=== PATIENT | female | born 1995 | race Caucasian/White ===

== ENCOUNTER 2018-01-07 07:29 | Day surgery (SDC) | payer OTHER, SELFPAY ==
[2018-01-07] VITALS (11 sets, daily range): BP systolic 113–151; BP diastolic 51–99; PULSE 81–105; RESP 14–19; TEMP 36.3–37.8; O2SAT 93–100; BMI 29.0; BMI 29.9
--- NOTE | 2018-01-07 07:30 | GALL_PTH ---
PATIENT: FÉLIX LOJA LOC: [facility] [place] U#:[id number] AGE/SX: 22/F ROOM: RE01/07/[address]: Dr. Ross Branch MD : [id number] BED: DIS: 01/08/2018 SPEC #: [id number] RECD: 01/07/18 13:22 STATUS: RENALDO AMISH #: [id number] TAYLOR: 01/07/18 07:[address]: Ross Branch DEPT: SURGICAL PATHOLOGY RECD BY: Rubio Salgado ENTERED: 01/07/18 13:36 SP TYPE: FRANCISCA CAMARA DR: Deb Otto, INCREMENT MANAGER-C Tissues: Gallbladder, NOS Procedures: Surgery Specimen Level III HEADER OPERATION: Laparoscopic cholecystectomy PRE-OP DIAGNOSIS: Acute cholecystitis and cholelithiasis TISSUE SUBMITTED: Gallbladder MICROSCOPIC DIAGNOSIS Gallbladder: Acute and chronic hemorrhagic and ulcerated cholecystitis and cholelithiasis. SJ:nathan 01/08/18 MICROSCOPIC DESCRIPTION Slides are reviewed. GROSS DESCRIPTION Received is one container labeled with the patient's name and designated gallbladder. The specimen consists of a gallbladder measuring 10 cm in length and up to 4 cm in diameter. A focal area of defect is noted at the fundus of the gallbladder. The external surface is pink-perez, smooth and glistening for the most part. Focally it is granular, hemorrhagic and contains cautery artifact. No bile is noted in the gallbladder. Present in the container are two round mulberry, greenish-yellow stones measuring in aggregate 4.5 x 2 x 2 cm and each stone measuring 2 cm in greatest dimension. The mucosa is ulcerated. No mass lesion is identified. The gallbladder wall measures up to 1 cm in thickness. Sales Representative [facility] sections from the gallbladder and the cystic duct are submitted in two cassettes. / BRANDON:nathan 01/07/18 TC:2 CPT: 01223
[2018-01-07] MEDS: 0.9% Normal Saline 1,000 ML 1000 ML IV (07:50)
--- NOTE | 2018-01-07 07:53 | US_ITS ---
STUDY: ABDOMINAL ULTRASOUND - RIGHT UPPER QUADRANT REASON FOR VISIT: Female, 22 years old. Right upper quadrant pain TECHNIQUE: Ultrasound evaluation of the right upper quadrant was performed with real-time and static holder-scale imaging. TECHNICAL QUALITY: Adequate. COMPARISON: None. FINDINGS: Liver: The liver measures 15.7 cm. There is normal echogenicity of the liver. The bile ducts are within normal limits. There is hepatic color flow. The direction of portal flow is hepatopetal. There is no demonstrated mass lesion. Gallbladder: Normal distended gallbladder. The gallbladder wall measures 3.5 mm. There is a positive sonographic Gaona's sign. There is no pericholecystic fluid. There is a solitary echogenic gallstone within the gallbladder. Common Bile Duct (C.B.D.): The common bile duct measures 6 mm. Pancreas: Normal size of the head, body and tail of the pancreas. There is normal echogenicity of the pancreas. There is no demonstrated pancreatic mass or cyst. Right Kidney: Normal size of the right kidney. The right kidney measures 10.8 x 5.2 x 5.7 cm. Normal renal cortex. The right cortex measures 1.9 cm. There is no demonstrated renal mass or cyst. There is no right hydronephrosis. US/Gallbladder IMPRESSION: Cholelithiasis and probable acute cholecystitis. Electronically Signed: William Peck MD at 9:49 EDT Tel , Service support ,
--- NOTE | 2018-01-07 07:57 | ED.VISSUMM ---
- ER Visit Summary Date of Service: 01/07/18 Chief Complaint: Abdominal pain History of Present Illness: The patient is a 22 F with upper abdominal pain for 3 days. Patient has had issues with this on and off for about 5 years. This episode seemed to be more severe. It started Saturday and was worse after eating food. She has tried multiple vfdp-eyq-vkqbxzx remedies, but nothing seems to help. It is associated with nausea and vomiting. Denies fever or skin changes. Denies any history of abdominal surgeries. Denies any medical problems. She takes control and uses alcohol occasionally. Non-smoker. Physical Examination: Afebrile. Heart rate 105 and blood pressure 147/93. Patient appears uncomfortable and is slightly tearful. Skin appears normal without pallor or jaundice. Heart regular. Lungs clear. Abdomen is tender in the upper hemiabdomen. No guarding or rebound. Negative Gaona sign. Test Results: We will check labs, urinalysis, and right upper quadrant ultrasound. Emergency Department Course and Treatment: Symptoms are concerning for gastric issues, reflux, hepatobiliary disease. Patient was treated with fluids, Zofran, and a GI cocktail while awaiting results. White count 11.9. CMP and lipase normal. Urinalysis and test negative. Ultrasound showed cholelithiasis and probable cholecystitis. GI cocktail did not help. Patient had increasing pain and required morphine. I am not convinced this is cholecystitis, but rather biliary colic. Given her severe symptoms, I discussed with Dr. Branch. He will evaluate the patient. Treatment Plan: As above Disposition: Pending further evaluation Impression: 1. Biliary colic This note was generated with [employer] dictation software. It may contain incorrect words, spelling, and punctuation that were not noted in review of the chart prior to signing ED Disposition - Plan for ED Patient: Chief Complaint: Abd Pain Referrals: NOT,DEFINED [NON-STAFF] -
--- NOTE | 2018-01-07 08:00 | ED.DCSUM_ITS ---
- ER Visit Summary Date of Service: 01/07/18 Chief Complaint: Abdominal pain History of Present Illness: The patient is a 22 F with upper abdominal pain for 3 days. Patient has had issues with this on and off for about 5 years. This episode seemed to be more severe. It started Saturday and was worse after eating food. She has tried multiple wryz-hls-tlgzuxq remedies, but nothing seems to help. It is associated with nausea and vomiting. Denies fever or skin changes. Denies any history of abdominal surgeries. Denies any medical problems. She takes control and uses alcohol occasionally. Non-smoker. Physical Examination: Afebrile. Heart rate 105 and blood pressure 147/93. Patient appears uncomfortable and is slightly tearful. Skin appears normal without pallor or jaundice. Heart regular. Lungs clear. Abdomen is tender in the upper hemiabdomen. No guarding or rebound. Negative Gaona sign. Test Results: We will check labs, urinalysis, and right upper quadrant ultrasound. Emergency Department Course and Treatment: Symptoms are concerning for gastric issues, reflux, hepatobiliary disease. Patient was treated with fluids, Zofran , and a GI cocktail while awaiting results. White count 11.9. CMP and lipase normal. Urinalysis and test negative. Ultrasound showed cholelithiasis and probable cholecystitis. GI cocktail did not help. Patient had increasing pain and required morphine. I am not convinced this is cholecystitis, but rather biliary colic. Given her severe symptoms, I discussed with Dr. Branch. He will evaluate the patient. Treatment Plan: As above Disposition: Pending further evaluation Impression: 1. Biliary colic This note was generated with [employer] dictation software. It may contain incorrect words, spelling, and punctuation that were not noted in review of the chart prior to signing ED Disposition - Plan for ED Patient: Chief Complaint: Abd Pain Referrals: NOT,DEFINED [NON-STAFF] -
[2018-01-07 08:03] LABS: Bacteria 0 SEEN /hpf (None Seen); Mucous, Urine 0 SEEN /hpf (<or=2+); White Blood Cells 0 SEEN /hpf (0-5)
[2018-01-07] MEDS: Ondansetron 4 MG/2 ML Vial IV (08:03)
[2018-01-07 08:06] LABS: Absolute Neutrophil Count 9.3 X10^3/uL (2.0-7.7); Basophil# 0.02 X10^3/uL; Basophil% 0.2 % (0-1); Color, Urine Yellow (Yellow); Eosinophil# 0.12 X10^3/uL; Glucose, Dipstick Normal (Normal); Hematocrit 45.1 % (37-47); Ketone-Dipstick Negative (Negative); Leukocyte Esterase-Dipstick Negative /ul (Negative); Mean Corp Hgb Conc 33.3 g/gl (32-36); Mean Corpuscular Hgb 28.7 pg (27.0-32.0); Mean Corpuscular Volume 86.2 fL (81-99); Mean Platelet Vol. 10.7 fl (6.2-12.0); Monocyte# 0.54 X10^3/uL; Monocyte% 4.5 % (0-10); Neutrophil # 9.29 X10^3/uL (2.7-7.7); Neutrophil % 78.1 % (47-70); Nitrite-Dipstick Negative (Negative); Occult Blood-Urine 10 /ul (Negative); POSITIVE COUNT NO; POSITIVE DIFFERENTIAL NO; POSITIVE MORPHOLOGY NO; Platelet Count 277 K/mm3 (150-450); Protein-Dipstick Negative (Negative); RBC Distribution Width CV 12.8 % (11.6-14.6); RBC Distribution Width SD 40.1 fl (35.1-43.9); Red Blood Count 5.23 M/mm3 (4.2-5.4); Urine Bilirubin Dipstick Negative (Negative); Urine Clarity Sl. Cloudy (Clear); Urine Urobilinogen Normal (Normal); Urine pH 6.5 (5.0 - 8.0); White Blood Count 11.9 K/mm3 (4.4-11.0)
[2018-01-07 08:13] LABS: Red Blood Cells-Urine 0-5 SEEN /hpf (0-5); Squamous Epithelial Cells - UA 0-5 SEEN /hpf (5-10)
[2018-01-07 08:24] LABS: ALB/GLOB Ratio 0.9 RATIO (0.9-2.4); AST(SGOT) 16 U/L (15-37); Alanine Aminotransfer ALT/SGPT 23 U/L (13-56); Albumin, Serum 3.9 g/dL (3.2-5.0); Alkaline Phosphatase 107 U/L (45-117); Anion Gap 6 (5-15); BUN 9 mg/dL (7-18); BUN/Creat Ratio 10.1 RATIO (10-20); Calcium,Total 9.6 mg/dL (8.5-10.1); Chloride 105 mmol/L (98-107); Creatinine, Serum 0.89 mg/dL (0.55-1.02); EST Glomerular Filtration Rate 83 mL/min (>60); Est Glom Filt Rate - Afr Amer 100 mL/min (>60); Estimated Creatinine Clearance 92.03 ml/min; Globulin 4.4 g/dL (2.2-4.2); Glucose 91 mg/dL (74-106); Lipase 108 U/L (73-393); Potassium 3.8 mmol/L (3.5-5.1); Pregnancy, Serum, hCG Quali. NEGATIVE Negative (0-9 Nonpreg); Protein, Total 8.3 g/dL (6.4-8.2); Sodium Level 138 mmol/L (136-145)
[2018-01-07] MEDS: Morphine 4 MG/ML Syringe IV (10:00)
--- NOTE | 2018-01-07 11:02 | HP.PCM_ITS ---
Problem List (1) Cholelithiasis and acute cholecystitis without obstruction Status: Acute History of Present Illness Date of Admission: 01/07/18 The patient is a 22 F with upper abdominal pain for 3 days. Patient has had issues with this on and off for about 5 years. This episode seemed to be more severe. It started Saturday and was worse after eating food. She has tried multiple naub-hle-wapivhu remedies, but nothing seems to help. It is associated with nausea and vomiting. Denies fever or skin changes. Denies any history of abdominal surgeries. Denies any medical problems. She takes control and uses alcohol occasionally. Non-smoker. While in the emergency department she has gotten a GI cocktail which did not affect her pain whatsoever. A gallbladder ultrasound was performed which showed a thickened gallbladder wall positive Gaona sign but no pericholecystic fluid was identified. Past Medical History Allergies No Known Allergies Allergy (Verified 01/07/18 07:31) Home Medications: Ambulatory Orders Medication Instructions Recorded Bcp 1 tab PO DAILY 01/07/18 Surgical History: - - Patient has had tubes as a child Smoking Status: Never smoker Alcohol: Rare Drugs: None - *Family History Maternal History Items: No pertinent history Review of Systems Constitutional: Reports: Anorexia. Denies: Chills, Fever Eyes: Denies: Blurred vision, Pain, Redness, Vision Change HEENT: Denies: Dysphasia, Ear Pain, Eye Pain, Head Aches, Hearing Changes, Sore Throat Cardiovascular: Denies: Chest Pain, Chest Pressure, Chest Tightness, Palpitations Respiratory: Denies: Cough, Hemoptysis, Shortness of breath at rest, Shortness of breath upon exertion, Wheezing Gastrointestinal: Reports: Abdominal Pain, Constipation, Nausea, Vomiting Genitourinary: Denies: Dysuria, Frequency, Hematuria, Urgency Musculoskeletal: Denies: Joint Pain Skin: Denies: Lesions, Rash, Wounds Neurological: Denies: Change in Speech, Confusion, Numbness, Tingling, Seizures Psychiatric: Denies: Anxiety, Depression Endocrine: Denies: Heat/ Cold Intolerance, Polydipsia, Polyuria Hematologic/ Lymphatic: Denies: Adenopathy, Easy Bruising VTE Information - Inpt Only VTE Present on Admission: No VTE Mechan Device Prophylaxis: SCD's VTE Pharm Prophylaxis ordered?: No Reason prophylaxis not ordered:: Treatment Not Indicated Patient Problems: Active and Suspected Problems Cholelithiasis and acute cholecystitis without obstruction (Acute) - Physical Exam General: Alert, Oriented x3 HEENT: Atraumatic, PERRLA, EOMI, Normocephalic Oral: Moist Mucosa Neck: Supple, No JVD Lungs: Clear to auscultation Cardiovascular: Regular rate, Regular Rhythm, No murmurs Abdomen: Non-Distended, No Hepato-splenomegaly - No rebound guarding or peritoneal signs are identified, Hypoactive Bowel Sounds, Tender Extremities: No clubbing, No cyanosis, No edema Lymphatic: No Cervical, Supraclavicular, or Inguinal Adenopathy Vital Signs Temp Pulse Resp BP Pulse Ox 97.8 F 87 16 145/97 H 98 01/07/18 07:30 01/07/18 09:50 01/07/18 09:50 01/07/18 09:50 01/07/18 09:50 Oxygen Delivery Method Room Air Weight: 180 lb Body Mass Index (BMI) 29.0 Laboratory Tests Past 24 Hrs 01/07/18 01/07/18 01/07/18 07:49 07:49 07:49 WBC 11.9 H RBC 5.23 Hgb 15.0 Hct 45.1 MCV 86.2 MCH 28.7 MCHC 33.3 RDW 12.8 RDW Differential 40.1 Plt Count 277 MPV 10.7 Immature Gran % (Auto) 0.200 Neut % (Auto) 78.1 H Lymph % (Auto) 16.0 L [place] % (Auto) 4.5 Eos % (Auto) 1.0 Baso % (Auto) 0.2 Absolute Neuts (auto) 9.3 H Absolute Lymphs (auto) 1.90 Total Counted Not Reportable Sodium 138 Potassium 3.8 Chloride 105 Carbon Dioxide 27.0 Anion Gap 6 BUN 9 Creatinine 0.89 Estim Creat Clear Calc 92.03 Est GFR (MDRD) Af Amer 100 Est GFR (MDRD) Non-Af 83 BUN/Creatinine Ratio 10.1 Glucose 91 Calcium 9.6 Total Bilirubin 0.30 AST 16 ALT 23 Alkaline Phosphatase 107 Total Protein 8.3 H Albumin 3.9 Globulin 4.4 H Albumin/Globulin Ratio 0.9 Lipase 108 Serum , Qual NEGATIVE Urine Color Urine Clarity Urine pH Ur Specific [place] Urine Protein Urine Glucose (UA) Urine Ketones Urine Occult Blood Urine Nitrite Urine Bilirubin Urine Urobilinogen Ur Leukocyte Esterase Urine RBC Urine WBC Ur Squamous Epith Cells Urine Bacteria Urine Mucus 01/07/18 07:49 WBC RBC Hgb Hct MCV MCH MCHC RDW RDW Differential Plt Count MPV Immature Gran % (Auto) Neut % (Auto) Lymph % (Auto) [place] % (Auto) Eos % (Auto) Baso % (Auto) Absolute Neuts (auto) Absolute Lymphs (auto) Total Counted Sodium Potassium Chloride Carbon Dioxide Anion Gap BUN Creatinine Estim Creat Clear Calc Est GFR (MDRD) Af Amer Est GFR (MDRD) Non-Af BUN/Creatinine Ratio Glucose Calcium Total Bilirubin AST ALT Alkaline Phosphatase Total Protein Albumin Globulin Albumin/Globulin Ratio Lipase Serum , Qual Urine Color Yellow Urine Clarity Sl. Cloudy Urine pH 6.5 Ur Specific [place] 1.010 Urine Protein Negative Urine Glucose (UA) Normal Urine Ketones Negative Urine Occult Blood 10 H Urine Nitrite Negative Urine Bilirubin Negative Urine Urobilinogen Normal Ur Leukocyte Esterase Negative Urine RBC 0-5 SEEN Urine WBC 0 SEEN Ur Squamous Epith Cells 0-5 SEEN Urine Bacteria 0 SEEN Urine Mucus 0 SEEN Assessment/Plan All Active Problems Cholelithiasis and acute cholecystitis without obstruction (Acute) My plan is perform a laparoscopic cholecystectomy. All risk benefits have been reviewed with the patient to include bleeding infection injury to underlying structures which could possibly mean further surgeries down the road. All questions asked of been answered and she agrees to proceed.
--- NOTE | 2018-01-07 11:26 | EKG12_ITS ---
Test Reason : PRE OP Blood Pressure : / mmHG Vent. Rate : 081 BPM Atrial Rate : 081 BPM P-R Int : 124 ms QRS Dur : 092 ms QT Int : 356 ms P-R-T Axes : 031 055 028 degrees QTc Int : 413 ms Normal sinus rhythm Normal ECG No previous ECGs available Confirmed by JACQUELINE BAUER ([id number]), story editor NAKIA SEN ([id number]) on 01/09/2018 12:34:10 PM Referred By: JENNIFER Confirmed By:JACQUELINE BAUER
--- NOTE | 2018-01-07 11:56 | PCM.OPRPT ---
Problem List (1) Cholelithiasis and acute cholecystitis without obstruction Status: Acute Report of Operation Date of Procedure: 01/07/18 Pre-Operative Diagnosis: Acute cholecystitis with cholelithiasis without obstruction Post-Operative Diagnosis: Same Surgery/Procedure Performed:: Laparoscopic cholecystectomy Type of Anesthesia:: General Anesthesiologist: Jean Paul Wan Specimen's removed: Gallbladder Estimated Blood Loss (mL): 100cc Description of Procedure: Patient was brought in the operating room and placed in the supine position. Under excellent general endotracheal intubation the abdomen was sterilely prepped and draped in the usual fashion. Local was injected infraumbilically. Dissection was carried down to the fascia. The fascia was grasped with a Jenny. Varies needle was placed inside the abdomen and the abdomen was insufflated 15 torr. A 10/12 trocar was placed without difficulty. Subxiphoid 5 trochars placed inferior to this another #5 trocar was placed and laterally a #5 trocar was placed. All of these under direct visualization without injury to underlying structures. Patient was noted to have a tense gallbladder acutely inflamed I aspirated out fluid that was purulent nature from the gallbladder. I grab the fundus of the gallbladder and retracted in a cephalad direction took down moderate amount of adhesions from the fundus as I dissected down and identified the cystic duct I had an extremely hard time dissecting out the cystic artery there was significant scarring in this area I do not believe this was her first episode of cholecystitis he was very apparent that doing any further dissection in this area could have comet undue [place] injury to either the hepatic duct or the right hepatic artery and therefore I aborted the dissection here. I then did a dome down approach taking the gallbladder down to this area this was done with electrocautery and I did not lose too much blood although the area was very oozy and all in all I probably lost close to 5200 cc of blood. Once I had an area dissected free and I felt comfortable putting a Endoloop around this I tied the Endoloop down to the juncture of the gallbladder and cystic duct it tied down quite nicely I transected the gallbladder and placed it in a specimen bag as well as the 2 large stones that were identified. I remove these through the umbilical port through a specimen bag without difficulty. I re-irrigated the right upper quadrant good hemostasis was noted I did not see any bleeding on the remnant of the gallbladder. I did not see any bile leaks. I placed a 15 round Prakash-Ruiz drain into the wound out through the lateral sidewall and sutured to the skin with a 3-0 nylon. I irrigated this area out with approximately 2-1/2 L of irrigation but I did leave some of the irrigation behind. I remove the trochars under direct visualization good hemostasis was noted close the fascia the umbilical port with a figure 8 stitch of 0 Vicryl skin incisions were closed with a particular stitches of 4-0 Monocryl Steri-Strips are applied sterile dressings were applied and the patient tolerated the procedure well. This is an extremely difficult case I think it was appropriate leaving part of the gallbladder remnant in place. - Admit VTE Documentation VTE Present on Admission: No VTE Mechan Device Prophylaxis: SCD's VTE Pharm Prophylaxis ordered?: No Reason prophylaxis not ordered:: Treatment Not Indicated
[2018-01-07] MEDS: Bupivacaine Mpf 0.5% 30 ML VIAL (13:16)
--- NOTE | 2018-01-07 17:05 | NURSING ---
taking popsicle without n/v, denies need for pain medication at this time
[2018-01-07] MEDS: Lactated Ringers 1,000 ML 60 ML IV (17:20)
[2018-01-07] MEDS: HYDROmorphone 1 MG/ML Syringe IV ×2 (17:20→20:13)
[2018-01-07] MEDS: HYDROcodone Bitartrate/Apap 5/325 Tablet PO (22:37)
[2018-01-08] MEDS: HYDROmorphone 1 MG/ML Syringe IV (00:48)
[2018-01-08] MEDS: Lactated Ringers 1,000 ML 60 ML IV (00:48)
[2018-01-08] MEDS: 0.9% NaCl Peripheral Flush Adult/Peds IV ×2 (00:48→04:43)
[2018-01-08 04:00] VITALS: BP 115/65; PULSE 91; RESP 18; TEMP 37.3; O2SAT 96
[2018-01-08] MEDS: HYDROcodone Bitartrate/Apap 5/325 Tablet PO ×2 (04:42→11:07)
[2018-01-08 07:44] LABS: Absolute Lymphocyte Count 2.33 X10^3/ul (0.83-4.51); Absolute Neutrophil Count 3.4 X10^3/uL (2.0-7.7); Basophil# 0.02 X10^3/uL; Basophil% 0.3 % (0-1); Eosinophils% 1.5 % (0-5); Hematocrit 41.2 % (37-47); Hemoglobin 12.7 g/dl (12.0-15.0); Lymphocyte # 2.33 X10^3/ul (4.0); Lymphocyte % 35.8 % (19-41); Mean Corp Hgb Conc 30.8 g/gl (32-36); Mean Corpuscular Hgb 27.9 pg (27.0-32.0); Mean Corpuscular Volume 90.4 fL (81-99); Mean Platelet Vol. 10.7 fl (6.2-12.0); Monocyte# 0.68 X10^3/uL; Monocyte% 10.5 % (0-10); Neutrophil # 3.37 X10^3/uL (2.7-7.7); Neutrophil % 51.9 % (47-70); Platelet Count 205 K/mm3 (150-450); RBC Distribution Width CV 13.2 % (11.6-14.6); RBC Distribution Width SD 43.2 fl (35.1-43.9); Red Blood Count 4.56 M/mm3 (4.2-5.4); White Blood Count 6.5 K/mm3 (4.4-11.0)
[2018-01-08 07:49] LABS: POSITIVE COUNT NO; POSITIVE DIFFERENTIAL NO; POSITIVE MORPHOLOGY NO
[2018-01-08 08:17] LABS: ALB/GLOB Ratio 0.8 RATIO (0.9-2.4); AST(SGOT) 80 U/L (15-37); Alanine Aminotransfer ALT/SGPT 93 U/L (13-56); Albumin, Serum 2.9 g/dL (3.2-5.0); Alkaline Phosphatase 110 U/L (45-117); Anion Gap 6 (5-15); BUN 4 mg/dL (7-18); BUN/Creat Ratio 4.4 RATIO (10-20); Calcium,Total 8.4 mg/dL (8.5-10.1); Chloride 108 mmol/L (98-107); EST Glomerular Filtration Rate 81 mL/min (>60); Est Glom Filt Rate - Afr Amer 98 mL/min (>60); Estimated Creatinine Clearance 91.01 ml/min; Globulin 3.5 g/dL (2.2-4.2); Glucose 84 mg/dL (74-106); Potassium 3.8 mmol/L (3.5-5.1); Protein, Total 6.4 g/dL (6.4-8.2); Sodium Level 140 mmol/L (136-145)
[2018-01-08 08:33] VITALS: BP 135/80; PULSE 94; RESP 18; TEMP 37.1; O2SAT 95
--- NOTE | 2018-01-08 09:26 | DCINST_ITS ---
Discharge Diet: Light diet - advance as tolerated Discharge Activity: May Not Drive - for 2-3 days or while taking narcotic pain medicataions., - - Do not drive, work heavy equipment or sign legal documents for 24 hours. May shower in (days): 1 - with the bandage in place. Additional Activity Instructions:: Pain medication may cause nausea. You should typically eat light foods as you take your pain medications. Pain medication may also cause constipation. If this is a problem for you, please discuss with your doctor. Call your doctor if your incision/area has: Continuous Slow Oozing, Sudden Increased Bleeding, Increased Pain/ Swelling, Increased Redness, Foul Smelling Discharge, Fever of 101 or Higher Call your doctor if you observe: Fever of 101 or Higher Suture Line Care: Avoid Pulling/Pushing, Avoid Pinching/Bending Cleanse incision/area with: Soap & Water Additional Dressing/Incision Instructions:: Leave operative bandaids on for 2 days. When you remove dressing, leave Steri-Strips on until your follow-up appointment, or until the Steri-Strips fall off on their own. Allergies/Adverse Reactions: Allergies No Known Allergies Allergy (Verified 01/07/18 07:31) Medications to take at Discharge Norgestimate-Ethinyl Estradiol [Previfem] 1 tablet PO DAILY 01/07/18 Hydrocodone Bitart/Apap 5-325 [Surprise 5/325] 1 - 2 tab PO Q6H PRN PRN 5 Days #30 tab 01/08/18 The following prescriptions were given: Hydrocodone Bitart/Apap 5-325 [[place] 5/325] 1 - 2 tab PO Q6H PRN PRN 5 Days #30 tab PRN Reason: Mild-Moderate (pain scale 1-5) Primary Care Physician: NOT,DEFINED [NON-STAFF] - Test Results: Test results from this visit will be discussed in further detail at your follow- up appointment, if applicable. Please Follow Up With: Sofia Espinal PA-C - [phone] When: 10 days Proposed Discharge Date: 01/08/18
--- NOTE | 2018-01-08 10:55 | PCM.PN.SRG ---
<Ross Branch - Last Filed: 01/08/18 11:26> Patient Problems: Active and Suspected Problems Cholelithiasis and acute cholecystitis without obstruction (Acute) - Physical Exam Vital Signs Temp Pulse Resp BP Pulse Ox 98.8 F 94 18 135/80 H 95 01/08/18 08:33 01/08/18 08:33 01/08/18 08:33 01/08/18 08:33 01/08/18 08:33 Oxygen Delivery Method Room Air Weight: 185 lb 3.013 oz Body Mass Index (BMI) 29.9 Intake and Output for Last 24 Hours 01/06/18 01/07/18 01/08/18 23:59 23:59 23:59 Intake Total 2400 / 2400 2533 / 2533 Output Total 210 / 210 3050 / 3050 Balance 2190 / 2190 -517 / -517 Laboratory Tests Past 24 Hrs 01/08/18 01/08/18 07:32 07:32 WBC 6.5 RBC 4.56 Hgb 12.7 Hct 41.2 MCV 90.4 MCH 27.9 MCHC 30.8 L RDW 13.2 RDW Differential 43.2 Plt Count 205 MPV 10.7 Immature Gran % (Auto) 0.000 Neut % (Auto) 51.9 Lymph % (Auto) 35.8 [place] % (Auto) 10.5 H Eos % (Auto) 1.5 Baso % (Auto) 0.3 Absolute Neuts (auto) 3.4 Absolute Lymphs (auto) 2.33 Total Counted Not Reportable Sodium 140 Potassium 3.8 Chloride 108 H Carbon Dioxide 26.0 Anion Gap 6 BUN 4 L Creatinine 0.90 Estim Creat Clear Calc 91.01 Est GFR (MDRD) Af Amer 98 Est GFR (MDRD) Non-Af 81 BUN/Creatinine Ratio 4.4 L Glucose 84 Calcium 8.4 L Total Bilirubin 0.50 AST 80 H ALT 93 H Alkaline Phosphatase 110 Total Protein 6.4 Albumin 2.9 L Globulin 3.5 Albumin/Globulin Ratio 0.8 L Assessment/Plan All Active Problems Cholelithiasis and acute cholecystitis without obstruction (Acute) Patient is progressing. Drain was removed today. Incisions are healing well. We will see how she is doing in the afternoon to make a determination whether she will be discharged. <Sofia Espinal - Last Filed: 01/08/18 12:22> Subjective: Patient evaluated resting comfortably in bed. She notes minimal amount of abdominal discomfort. She denies nausea, vomiting, fever. She is urinating well. - Physical Exam General: Alert, Oriented x3, Cooperative Abdomen: Bowel Sounds Present, Soft, Tender - generalized, - - Incisions c/d/i. No erythema or infection noted. STEPHEN drain was removed. Vital Signs Temp Pulse Resp BP Pulse Ox 98.8 F 94 18 135/80 H 95 01/08/18 08:33 01/08/18 08:33 01/08/18 08:33 01/08/18 08:33 01/08/18 08:33 Oxygen Delivery Method Room Air Weight: 185 lb 3.013 oz Body Mass Index (BMI) 29.9 Intake and Output for Last 24 Hours 01/06/18 01/07/18 01/08/18 23:59 23:59 23:59 Intake Total 2400 / 2400 1822 / 1822 Output Total 210 / 210 2350 / 2350 Balance 2190 / 2190 -528 / -528 Laboratory Tests Past 24 Hrs 01/08/18 01/08/18 07:32 07:32 WBC 6.5 RBC 4.56 Hgb 12.7 Hct 41.2 MCV 90.4 MCH 27.9 MCHC 30.8 L RDW 13.2 RDW Differential 43.2 Plt Count 205 MPV 10.7 Immature Gran % (Auto) 0.000 Neut % (Auto) 51.9 Lymph % (Auto) 35.8 [place] % (Auto) 10.5 H Eos % (Auto) 1.5 Baso % (Auto) 0.3 Absolute Neuts (auto) 3.4 Absolute Lymphs (auto) 2.33 Total Counted Not Reportable Sodium 140 Potassium 3.8 Chloride 108 H Carbon Dioxide 26.0 Anion Gap 6 BUN 4 L Creatinine 0.90 Estim Creat Clear Calc 91.01 Est GFR (MDRD) Af Amer 98 Est GFR (MDRD) Non-Af 81 BUN/Creatinine Ratio 4.4 L Glucose 84 Calcium 8.4 L Total Bilirubin 0.50 AST 80 H ALT 93 H Alkaline Phosphatase 110 Total Protein 6.4 Albumin 2.9 L Globulin 3.5 Albumin/Globulin Ratio 0.8 L Medical Necessity - Tobacco Use Smoking Status: Never smoker Assessment/Plan Ready for discharge Code Visit Inpatient E&M: 96311 Subs Hosp L1 - Post-op charge
== END 2018-01-08 13:30 | disposition home or self-care (01) ==
LOC: ED 08:12 → SDC 10:59 → AC 11:07 → MS3 01-08 12:39
PROVIDERS: Physician Assistant; Emergency Provider Emergency Medicine; Family Provider Nurse Practitioner Primary Care; PCP Nurse Practitioner Primary Care; Visit Provider Surgery
PROC: (CPT 47562; principal; 2018-01-07 07:10)
DX: K80.12 Calculus of gallbladder with acute and chronic cholecystitis without obstruction (principal)
CPT/HCPCS: 47562; 36415; 76705; 80053; 81001; 83690; 84703; 85025; 88304; 93005; 99282; J7030; J7120; A4216; J2405

== ENCOUNTER 2023-03-11 19:00 | Inpatient (IN) | payer OTHER, SELFPAY ==
[2023-03-11] VITALS (41 sets, daily range): BP systolic 82–215; BP diastolic 45–115; PULSE 56–81; TEMP 36.4–37.2; O2SAT 97–100; BMI 34.7
[2023-03-11] MEDS: Lactated Ringers 1,000 ML 50 ML IV (20:20)
[2023-03-11] MEDS: 0.9% Normal Saline Single 100 ML IV.SOLN. INTRA-UTER (20:30)
--- NOTE | 2023-03-11 20:31 | HP.PCM.OB_ITS ---
HPI - General General Date of Admission: 03/11/23 Date of Service: 03/11/23 Chief Complaint: elevated BP HPI Narrative FÉLIX LOJA, is a 28 F who presents 1 para 0 who presents at 38-5/7 weeks gestation with elevated blood pressure in the office today. Blood pressures been normal throughout . She denies any headache or visual changes. She actually presented to the office today with decreased movement. She denied any vaginal bleeding or leaking of fluid. She denies any epigastric pain. is uncomplicated to date. [facility] Medical History (Updated 03/11/23 @ 20:[address] Sunni Ferrell MD) Cholelithiasis and acute cholecystitis without obstruction Gestational HTN Home Medications norgestimate 0.25 mg-ethinyl estradiol 35 mcg tablet 1 tab PO DAILY [facility]ulbal[facility] surgery 01/07/18 [History Last Taken 01/07/18 08:00] w/calcium 8-iron 29 mg-folic 400 mcg-levomefolate 1 mg tablet 1 tab PO DAILY 03/11/23 [History Last Taken 03/10/23 12:00 1 TAB] Allergy/AdvReac Type Severity Reaction Status Date / Time nystatin Allergy Hives Uncoded 03/11/23 19:35 Surgical History (Updated 03/11/23 @ 20:19 by Clotilde Scott) History of placement of ear tubes History of surgery History of tonsillectomy and adenoidectomy Hx of cholecystectomy Social History (System 04/18/21 @ 10:13 by Sylvia Purvis) Smoking Status: Never smoker second hand exposure: No alcohol intake: current alcohol intake frequency: a few times a month substance use type: does not use caffeine: Yes ROS Constitutional Constitutional: Denies fatigue, fever(s) or malaise Eyes Eyes: Denies change in vision ENT HEENT: Denies dizziness or headache(s) Cardiovascular Cardiovascular: Denies chest pain, dyspnea or lightheadedness Respiratory/Chest Respiratory/Chest: Denies cough or dyspnea Gastrointestinal Gastrointestinal: Denies change in bowel habits Genitourinary Genitourinary: Denies burning urination or genital lesions Integumentary Integumentary: Denies rash Neurologic Neurologic: Denies confusion, dizziness, headache(s), numbness or weakness Vital Signs Vital Signs Vital Signs: 03/11/23 20:12 03/11/23 20:12 03/11/23 20:13 Temperature Temperature Source Pulse Rate 75 74 Blood Pressure 143/85 H BP Systolic 143 BP Diastolic 85 Pulse Ox 03/11/23 20:13 03/11/23 20:12 03/11/23 20:12 Temperature Temperature Source Temporal Pulse Rate 79 Blood Pressure BP Systolic BP Diastolic Pulse Ox 97 03/11/23 20:12 03/11/23 20:12 Temperature 98.9 F Temperature Source Pulse Rate Blood Pressure BP Systolic BP Diastolic Pulse Ox 97 Weight Weight: 97.579 kg Body Mass Index (BMI) 34.7 Physical Exam Const alert and no apparent distress General Appearance: cooperative HEENT normocephalic Resp normal respiratory effort Cardio regular rate GI soft to palpation GI Narrative: gravid, nontender, appropriate for gestational age Extremity no calf tenderness General Extremity: edema Skin no wounds Rashes: No rashes noted Psych activity/motor behavior normal Labs Labs Labs: Blood Type Pending Antibody Screen Pending Hct 41.0 % (37-47) Hgb 13.3 g/dL (12.0-15.0) Syphilis Total Ab Pending Assessment & Plan (1) 38 weeks gestation of : PLAN: Normal parous patient with uncomplicated to date presents today for gestational hypertension. No clinical evidence of preeclampsia at this time. Labs are pending. heart tones tracing is category 1. Risk benefits and alternatives to induction of labor were discussed with the patient and her partner and the questions were answered and they desire to proceed. Estimated weight is less than 4500 g clinically and pelvis clinically adequate to expect vaginal delivery. May have routine pain control measures as needed. Will give 1 dose of oral Cytotec. Then will initiate Pitocin as needed. Skinner catheter placed through the cervix in the usual sterile fashion and inflated to 30 cc. Placement over internal os confirmed. Incidental artificial rupture membranes with return of moderate amount of clear fluid at time of Skinner placement.
[2023-03-11 20:33] LABS: Absolute Neutrophil Count 12.1 X10^3/uL (2.0-7.7); Basophil# 0.05 X10^3/uL; Basophil% 0.3 % (0-1); Eosinophil# 0.09 X10^3/uL; Eosinophils% 0.6 % (0-5); Hemoglobin 13.3 g/dL (12.0-15.0); Lymphocyte % 12.8 % (19-41); Mean Corp Hgb Conc 32.4 g/dL (32-36); Mean Corpuscular Hgb 28.5 pg (27.0-32.0); Mean Platelet Vol. 12.5 fl (6.2-12.0); Monocyte# 0.67 X10^3/uL; Monocyte% 4.5 % (0-10); NRBC Flagged by Analyzer 0 % (0-5); Neutrophil # 12.12 X10^3/uL (2.7-7.7); Neutrophil % 81.4 % (47-70); Platelet Count 189 K/mm3 (150-450); RBC Distribution Width CV 13.6 % (11.6-14.6); RBC Distribution Width SD 43.2 fl (35.1-43.9); Red Blood Count 4.66 M/mm3 (4.2-5.4); White Blood Count 14.9 K/mm3 (4.4-11.0)
[2023-03-11] MEDS: Ondansetron 4 MG/2 ML Vial IV (20:53)
[2023-03-11] MEDS: LACTATED RINGERS 500 ML 999 ML IV ×2 (21:11→21:58)
[2023-03-11 21:20] LABS: Syphilis Antibodies Non-reactive
[2023-03-11 21:30] LABS: AST(SGOT) 9 U/L (15-37); Alanine Aminotransfer ALT/SGPT 15 U/L (13-56); Creatinine, Serum 0.65 mg/dL (0.55-1.02); EST Glomerular Filtration Rate 114 mL/min (>60); Est Glom Filt Rate - Afr Amer 138 mL/min (>60); Estimated Creatinine Clearance 119.55 ml/min; Uric Acid 4.3 mg/dL (2.6-6.0)
[2023-03-11 21:31] LABS: Protein, Urine (Random) 6.5 mg/dL (<11.9); Protein:Creat Ratio 133 mg/g CRE (0-200)
[2023-03-11] MEDS: proCHLORPERazine 10 MG/2 ML Vial IV (21:41)
[2023-03-11] MEDS: fentaNYL-bupivacaine (epidural) 100 ML BAG EPIDURAL (22:00)
[2023-03-12] VITALS (96 sets, daily range): BP systolic 111–142; BP diastolic 54–94; PULSE 60–92; RESP 16–18; TEMP 36.2–37.3; O2SAT 89–100
[2023-03-12] MEDS: LACTATED RINGERS 500 ML 999 ML IV (00:14)
[2023-03-12] MEDS: Lactated Ringers 1,000 ML 200 ML IV (00:32)
[2023-03-12] MEDS: Ondansetron 4 MG/2 ML Vial IV (03:01)
[2023-03-12] MEDS: Acetaminophen 500 MG Tablet PO (03:46)
[2023-03-12] MEDS: Oxytocin 10 UNITS/ML Vial IM (07:43)
[2023-03-12] MEDS: Oxytocin 15 Units/NS 250ml 15 UNITS/250 ML IV.SOLN 83 UNITS IV (07:45)
--- NOTE | 2023-03-12 08:06 | EX.PCM.OBRPT ---
Assessment & Plan (1) 38 weeks gestation of : (2) (spontaneous vaginal delivery): Maternal Data Information Final BRITTANY: 03/20/23 Gestational age: 38 6/7 Vaginal Delivery Maternal Presentation Maternal Presentation: Medically Indicated Induction Type of Induction: Skinner Bulb and Amniotomy Medical Reason for Induction: Gestational Hypertension Operative Information Date of Procedure: 03/12/23 Pre-Operative Diagnosis: labor Post-Operative Diagnosis: same Surgery / Procedure Performed: Spontaneous Vaginal Delivery Type of Anesthesia: Epidural Special Medications: none Drain: Skinner to straight drain Estimated Blood Loss: 300 Time of Delivery: 07:41 Findings Description of Procedure: A vigorous female was delivered LAW over a small first-degree vaginal laceration. The remainder the was delivered with maternal pushing and gentle traction only in less than 15 seconds. The Pitocin infusion was initiated for active management of the third stage. The cord was clamped and cut after cord pulsations ceased. The was attended to by the waiting nursing staff. The placenta was delivered spontaneously and intact. The cervix and vagina were intact. The small first-degree vaginal laceration was oversewn with a 3-0 Vicryl Rapide suture to obtain hemostasis. Sponge and needle counts were correct. A vaginal sweep was completed by me. Presentation: LAW Amniotic Membrane Rupture Type: Artificial Amniotic Fluid Description: Clear Placental Delivery Description: Spontaneous Placenta Disposition: [facility] Cord Vessel Description: 3 Vessels Cord Entanglement: None A Gender: Female (Andre zamorano) (1 minute): 8 (5 minute): 9 Delayed Cord Clamping: Yes Post Vaginal Delivery Medications Given After Delivery: IV Pitocin Episiotomy Description: None Laceration: 1st degree Complication Complications: None
[2023-03-12] MEDS: Ibuprofen 600 MG Tablet PO ×3 (09:26→23:09)
[2023-03-12] MEDS: Acetaminophen 500 MG Tablet 1000 MG PO ×2 (11:15→20:23)
[2023-03-12] MEDS: 0.9% Saline Lock 10 ML Syringe IV (11:15)
[2023-03-12] MEDS: Senna/Docusate Sodium 1 Tablet PO (11:22)
[2023-03-13] MEDS: cycloBENZAPRine HCl 10 MG Tablet PO (00:02)
[2023-03-13 00:05] VITALS: BP 140/82; PULSE 71; RESP 16; TEMP 36.8; O2SAT 98
--- NOTE | 2023-03-13 00:45 | NURSING ---
Late entry from 2315 on 03/12/23. Pt's came out to nurse's station reporting that pt was having worsening neck pain and was in tears over the increasing pain. Pt requesting that RN come back to room. RN entered room and pt was crying while sitting on foot of bed. Pt reports that her neck pain has only gotten worse since taking the Tylenol. Pt thinks that showering and washing her hair irritated her neck pain and it has only worsened since then. Pt due for Motrin, so RN administered Motrin. Pt reports that the heating pad is no longer helping her pain, so RN offered ice packs. Pt willing to try ice packs at this time. RN discussed situation with Dr. Keane and received PRN order for Flexeril. Pt agreeable to trying Flexeril. Ice packs given and Flexeril administered. RN will continue to monitor. QUINCY Hauser
[2023-03-13] MEDS: Acetaminophen 500 MG Tablet 1000 MG PO (02:34)
[2023-03-13 04:15] VITALS: BP 130/83; PULSE 68; RESP 16; TEMP 36.6; O2SAT 97
[2023-03-13] MEDS: Ibuprofen 600 MG Tablet PO (05:23)
[2023-03-13 07:16] VITALS: BP 129/85; PULSE 77; RESP 16; TEMP 36.3; O2SAT 97
--- NOTE | 2023-03-13 07:55 | NURSING ---
Complaining of neck pain, 7 on 0-10 scale, unrelieved by current medications. Dr. Allen notified.
--- NOTE | 2023-03-13 08:26 | PCM.PROGNOTE ---
Subjective Subjective patient seen at bedside, doing well. Patient reports good pain control. lochia mild. Has had neck pain since start of induction when she vomited (prior to epidural)- she reports pain feel like possible pinched nerve- radiates up neck slightly and then down both sides of neck. No numbness or tingling to arms. has intermittent Headache. Objective Data Objective Data Vital Signs: Vital Signs Temp Pulse Resp BP Pulse Ox O2 Del Method 97.3 F L 77 16 129/85 H 97 Room Air 03/13/23 07:16 03/13/23 07:16 03/13/23 07:16 03/13/23 07:16 03/13/23 07:16 03/13/23 07:16 Oxygen Delivery Method Room Air Weight: 97.579 kg Body Mass Index (BMI) 34.7 Intake & Output: Intake and Output for Last 24 Hours 03/11/23 03/12/23 03/13/23 23:59 23:59 23:59 Intake Total 1062.5 / 1062.5 2740 / 2740 Output Total 1600 / 1600 Balance 1062.5 / 1062.5 1140 / 1140 Lab / Micro Data 03/11/23 20:20 03/11/23 20:00 Physical Exam Const alert and oriented x3 General Appearance: cooperative HEENT normocephalic Neck General: normal visual inspection GI soft to palpation and non-distended GI Narrative: Fundus firm Extremity normal to inspection and no calf tenderness Skin no rashes or lesions noted Neuro oriented x3 and CN's II-XII intact bilaterally Psych mental status grossly normal Assessment & Plan Assessment/Plan (1) Headache: PLAN: appears more MSK in nature. (2) (spontaneous vaginal delivery): PLAN: Plan PPD# 1 , Doing well- headache Routine care pain mgmt ambulation will try Fioricet and Toradol
--- NOTE | 2023-03-13 08:30 | DCINST_ITS ---
Discharge Instructions Diet Discharge Diet: No restrictions Activity May resume sexual activity in: 6-8 weeks Dressing / Incision Call your doctor if you observe: Fever of 101 or Higher, Inability to urinate, Using more than 1 pad per hour and Uncontrolled pain Follow Up Care Please Follow Up With: Maria C Contreras MD When: 1-2 weeks post and again at 6 weeks post . [phone] Test Results: Test results from this visit will be discussed in further detail at your follow- up appointment, if applicable. Discharge Plan Admission Admit Date/Time: 03/11/23 19:00 Attending Provider: Sunni Ferrell Primary Care Provider: Deb Otto NP Discharge Orders/Prescriptions Prescriptions: No Action norgestimate-ethinyl estradiol 0 tablet 1 tab PO DAILY Patient Comments: PNV with Aq8-uwng-ZL-Lmefolate 29 mg iron-400 mcg-1 mg tablet 1 tab PO DAILY Referrals / Follow Up: Deb Otto NP, [employer] [Primary Care Provider] - Disposition Disposition (needs filled in before D/C Order can be placed): Home, Self Care
[2023-03-13] MEDS: Senna/Docusate Sodium 1 Tablet PO (09:10)
[2023-03-13] MEDS: Acetaminophen/Butalbital/Caffe 1 Tablet 2 TABLET PO ×2 (09:12→14:23)
[2023-03-13] MEDS: Ketorolac 30 MG/ML Syringe IM ×2 (09:44→15:56)
[2023-03-13 10:00] VITALS: BP 127/79; PULSE 71; RESP 18; TEMP 36.3; O2SAT 98
[2023-03-13 14:00] VITALS: BP 130/86; PULSE 72; RESP 18; TEMP 36.3; O2SAT 98
--- NOTE | 2023-03-13 15:41 | NURSING ---
student nurse's charting reviewed that is used for educational and learning purposes.
[2023-03-13 19:00] VITALS: BP 136/87; PULSE 74; RESP 16; TEMP 36.6
== END 2023-03-13 19:00 | disposition home or self-care (01) | DRG 807 ==
PROVIDERS: Admitting Provider Obstetrics & Gynecology; PCP Nurse Practitioner Primary Care; Visit Provider Obstetrics & Gynecology
DX: O13.4 Gestational [pregnancy-induced] hypertension without significant proteinuria, complicating childbirth (principal); Z37.0 Single live birth; O70.0 First degree perineal laceration during delivery; Z3A.38 38 weeks gestation of pregnancy
CPT/HCPCS: 59025; 59050; 82565; 82570; 84156; 84450; 84460; 84550; 85025; 86780; 86850; 86900; 86901; 99221; J7120; A4216; G0378; J2405